=== PATIENT | male | born 1940 | race Caucasian/White ===

== ENCOUNTER 2018-02-12 14:37 | Emergency (ER) | payer MEDICARE, BC ==
[~2018-02-12] VITALS: Ht 182.9 cm; Wt 104.5 kg
[2018-02-12 14:56] VITALS: Ht 182.9 cm; Wt 104.5 kg
[2018-02-12 15:35] LABS: BASOPHILS 0.6 % (0-2); EOSINOPHILS 3.6 % (0-7); HEMATOCRIT 36.4 % (42.0-54.0); HEMOGLOBIN 12.1 g/dL (13.5-17.5); IMMATURE GRANULOCYTES 0.2 % (0-5); LYMPHOCYTES 21.2 % (15-50); MCH 29.2 pg (26.0-34.0); MCHC 33.2 g/dL (31.0-37.0); MCV 87.9 fL (80.0-100.0); MEAN PLATELET VOLUME 8.8 fL (7.4-10.4); MONOCYTES 6.5 % (2-11); NEUTROPHILS 67.9 % (40-80); PLATELET COUNT 209 10x3/uL (130-400); RBC 4.14 10x6/uL (4.20-6.10); RDW 13.3 % (11.5-14.5); WBC 8.4 10x3/uL (4.8-10.8)
[2018-02-12 15:38] LABS: APPEARANCE CLEAR (CLEAR); BILIRUBIN NEGATIVE (NEGATIVE); COLOR DK YELLOW (YELLOW); GLUCOSE NEGATIVE (NEGATIVE); KETONE NEGATIVE (NEGATIVE); NITRITE NEGATIVE (NEGATIVE); PROTEIN TRACE mg/dL (NEGATIVE); UROBILINOGEN NORMAL (NORMAL)
[2018-02-12 15:41] LABS: BACTERIA FEW /hpf (NONE SEEN); EPITHELIAL CELLS 0-5 /hpf (0-5); RED CELLS - URINE 0-5 /hpf (0-5)
[2018-02-12 16:00] LABS: ALBUMIN 3.1 g/dL (3.4-5.0); ALKALINE PHOSPHATASE 58 U/L (46-116); ALT (SGPT) 8 U/L (10-68); BILIRUBIN - TOTAL 0.43 mg/dL (0.2-1.3); CALC OSMOLALITY 285 mosm/kg (275-300); CALCIUM 8.7 mg/dL (8.5-10.1); CARBON DIOXIDE 27.2 mmol/L (21.0-32.0); CHLORIDE - SERUM 109 mmol/L (98-107); CREATININE - SERUM 1.2 mg/dL (0.6-1.3); GLUCOSE 96 mg/dL (74-106); POTASSIUM - SERUM 4.4 mmol/L (3.5-5.1); SODIUM 142 mmol/L (136-145); UREA NITROGEN 20 mg/dL (7-18); eGFR NON AFRICAN AMERICAN 62 mL/min (90-120)
[2018-02-12 16:12] LABS: CKMB 0.6 U/L (0.0-3.6)
[2018-02-12 16:15] LABS: TROPONIN-I < 0.017 ng/mL (0.000-0.060)
[2018-02-12] MEDS ORDERED: LASIX40 MG PO (18:45)
[2018-02-12] MEDS ORDERED: LEVAQUIN500 MG PO (18:45)
[2018-02-12] MEDS ORDERED: KLOR-CON 1010 MEQ PO (18:48)
[2018-02-12 19:00] VITALS: BP 128/75
== END 2018-02-12 19:00 | disposition home or self-care (01) ==
LOC: D.ER 14:37
PROVIDERS: Family Medicine
DX: R60.0 Localized edema (principal); G20 Parkinson's disease; N39.0 Urinary tract infection, site not specified; K21.9 Gastro-esophageal reflux disease without esophagitis; Z85.828 Personal history of other malignant neoplasm of skin